=== PATIENT | female | born 1970 | race Caucasian/White ===

== ENCOUNTER → 2016-10-26 | Outpatient (CLI) | payer BC ==
[~2016-10-26] MED LIST: PRENTAB26
--- NOTE | 2016-10-26 13:47 | MAMMOGRAPHY REPORT ---
BILATERAL DIGITAL DIAGNOSTIC MAMMOGRAM TOMOSYNTHESIS WITH CAD AND TARGETED LEFT ULTRASOUND: 10/26/2016 CLINICAL HISTORY: A follow-up MRI was recommended on the September 2014 exam for a left upper outer q uadrant breast mass, however, the patient could not get a follow-up as the insurance company would n ot pay for it. TECHNIQUE: Breast tomosynthesis in addition to standard 2D mammography was performed. Current study was also evaluated with a Computer Aided Detection (CAD) system. Bilateral CC and MLO 2-D and juan synthesis images were obtained. COMPARISON: Comparison is made to exams dated: 10/09/2014 mammogram, 10/09/2014 ultrasound - [facility], 09/28/2014 mammogram, 09/28/2014 breast MRI - [facility], and 11/17 mammogram - [facility]. BREAST COMPOSITION: There are scattered areas of fibroglandular density in both breasts. FINDINGS: Again noted is an oval 9 mm mass seen within the left upper outer quadrant, which appears less prominent compared to prior exams including the 2013 and 2009 exam. On the tomosynthesis imag es other small round benign-appearing masses are seen in the adjacent tissues which likely represent cysts. The remainder of both breasts are stable compared to prior exams, without suspicious masses , calcifications, or areas of architectural distortion noted. A biopsy marker clip is again noted i n the right upper outer quadrant. Targeted ultrasound was performed of the left 2 to 3:00 breast in the region of the previously seen mass. In the left breast at 2:00 periareolar region, again noted is a subtle oval circumscribed par allel 9 x 3 x 5 mm mass, which likely corresponds with the mammographic mass. The mass is ill-defin ed on ultrasound but appears less prominent on mammograms and ultrasound compared to the 2014 exam, and is therefore considered benign and likely represents a cyst lesser. Other benign cystic changes are noted in the left 2:00 breast. IMPRESSION: ACR BI-RADS CATEGORY 2: BENIGN, TARGETED ULTRASOUND ACR BI-RADS CATEGORY 2: BENIGN The left upper outer quadrant breast mass is decreased in size compared to prior exams, and is there fore benign and likely represents a cyst cluster. There is no mammographic evidence of malignancy in either breast. A 1 year screening mammogram is recommended. The patient has been verbally notifie d of the results. Approximately 10% of breast cancers are not detected with mammography. A negative mammographic repor t should not delay biopsy if a clinically suggestive mass is present. Alejandra Rucker M.D. ah/:10/26/2016 11:51:34 Numerical Control Tool Programmer: Sadaf Blue, [facility] letter sent: Normal 1/2 BI-RADS Code: ACR BI-RADS Category 2: Benign Ultrasound BI-RADS: ACR BI-RADS Category 2: Benign
== END | disposition home or self-care (01) ==
LOC: C.MAMM 09:16
PROVIDERS: ATTEND Family Medicine
DX: R92.8 Other abnormal and inconclusive findings on diagnostic imaging of breast (principal); N63 Unspecified lump in breast

== ENCOUNTER 2023-07-18 14:57 | Inpatient (IN) ==
[2023-07-18 16:36] LABS: Basophils # (auto) 0.02 K/uL (0.00-0.20); Basophils % (auto) 0.2 %; Eosinophils # (auto) 0.06 K/uL (0.00-0.50); Eosinophils % (auto) 0.5 %; Hematocrit (blood only) 44.8 % (37.0-47.0); Hemoglobin 14.5 g/dl (12.0-16.0); Immature Granulocytes # (auto) 0.02 K/uL (0.01-0.20); Immature Granulocytes % (auto) 0.2 %; Lymphocytes # (auto) 0.86 K/uL (1.20-3.40); Lymphocytes % (auto) 7.4 %; Mean Corpuscular Hgb Conc 32.4 g/dL (32.0-36.0); Mean Corpuscular Volume 92.6 fL (80.0-100.0); Mean Platelet Volume 10.2 fL (9.4-12.4); Monocytes # (auto) 0.62 K/uL (0.11-0.59); Monocytes % (auto) 5.3 %; Neutrophils # (auto) 10.02 K/uL (1.40-6.50); Neutrophils % (auto) 86.4 %; Platelet Count 239 K/uL (130-400); RDW Coefficient of Variation 12.8 % (11.5-14.5); RDW Standard Deviation 43.6 fL (36.4-46.3); Red Blood Count 4.84 M/uL (4.20-5.40)
[2023-07-18 16:57] LABS: Albumin Globulin Ratio 1.4 (0.9-2); Albumin Level 4.6 gm/dl (3.4-5.0); BUN Creatinine Ratio 18.3 (10-20); Bilirubin,Total 1.1 mg/dl (0.2-1.0); Calcium 9.4 mg/dl (8.6-10.3); Creatinine Clr Calc Pharmacy 109.9 ml/min; Est GFR (African American) 111.9 ml/min; Est GFR (Non-African American) 96.6 ml/min; Globulin 3.2 gm/dl (2.5-4.0); Total Protein 7.8 gm/dl (6.0-8.3)
--- NOTE | 2023-07-18 17:10 | Ultrasound Report ---
US abdomen limited CLINICAL HISTORY: RUQ pain, "gallbladder attack" TECHNIQUE: Multiple real-time sonographic images of the right upper quadrant were obtained. Comparison: Comparison is made to right upper quadrant ultrasound 01/26/2023 FINDINGS: The liver is diffusely echogenic in appearance with poor ultrasound penetration, with normal contour, which is consistent with fatty infiltration. No focal mass lesions are seen. No intrahepatic duct al dilatation is seen. Gallbladder demonstrates a thickened wall without pericholecystic fluid. Echo genic calcifications are seen along the anterior gallbladder wall. A sonographic Augustin's sign was el icited by the data consultant. The common duct measures 0.4 cm in diameter at the level of the hepatic artery. The visualized portions of the pancreas appear normal. The right kidney shows normal echogenicity, cortical thickness and renal contour. The right kidney sh ows no evidence of hydronephrosis or mass. No ascites or free fluid is seen in Thayer's pouch. IMPRESSION: 1. Thickened gallbladder wall with positive sonographic Augustin's sign, compatible with acute cholecy stitis. 2. Likely adenomyomatosis in the anterior gallbladder wall. ACT 112: Negative or not required by law. Electronically signed by: Raj Chamberlain M.D. 07/18/2023 5:08 PM
[2023-07-18 17:23] LABS: Appearance Urine Clear (Clear); Bacteria Urine Automated Negative (Negative); Blood Urine Negative (Negative); Color Urine Dark Yellow; Epithelial Cell Urine Auto 20-30 /lpf (0-5); Glucose Urine UA Negative (Negative); Ketones Urine Negative (Negative); Leukocyte Esterase Urine Trace (Negative); Nitrite Urine Negative (Negative); Protein Urine Trace (Negative); Specific Gravity Urine 1.028 (1.000-1.030); Urobilinogen Urine Negative (Negative)
[2023-07-18 17:27] LABS: Bilirubin Urine 1+ (Negative)
[2023-07-18 17:37] LABS: RBC Urine Automated 0-4 /hpf (0-4)
[2023-07-18 17:38] LABS: Mucus Urine Present (None Prsent)
[2023-07-18] MEDS ORDERED: ONDANSETRON INJ 2 MG/ML 2 ML VIAL IV STA (18:33)
[2023-07-18] MEDS ORDERED: SODIUM CHLORIDE 0.9% 1,000 ML IV ONE (18:33)
[2023-07-18] MEDS ORDERED: PIPERACILLIN/TAZOBACTAM 4.5 GM/100 ML BAG IV ONE (18:35)
--- NOTE | 2023-07-18 18:38 | Emergency Department Note ---
Impression & Plan Cholecystitis, Abdominal pain, Transaminitis ED Provider Note NAME: GILMER COLLIER AGE: 53 SEX: F : 1970 ARRIVES VIA: Walk-In INFORMANT: Patient ED PROVIDER(S): Atilio New DO CHIEF COMPLAINT: abdominal pain HPI: Patient is a 53-year-old female who presents ER for epigastric abdominal pain which has been coming and going since January. She notes this is mainly at t he night time that this occurs. Associate with some nausea and intermittent vomiting. It occurred at the end of last week and again Sunday and Sunday. Since Sunday has been constant she notes it has improved in severity. It is associated with nausea and vomiting. Has not really been eating or drinking much. Denies any headache or change in vision. Admits to feeling very weak and rundown. No dysuria, urgency, or frequency. No other exacerbating or remitting factors. ADDITIONAL HISTORY OBTAINED: Per HPI Chronic Medical/Social Conditions Affecting Care: Per HPI PAST MEDICAL HISTORY:See Below PAST SURGICAL HISTORY:See Below FAMILY HISTORY:See Below SOCIAL HISTORY:See Below HOME MEDICATIONS:See Below ALLERGIES:See Below VITALS:See Below PHYSICAL EXAMINATION: GENERAL: Sitting up in bed, alert, well appearing, well nourished, no distress, non-toxic EYE EXAM: normal conjunctiva. OROPHARYNX: mucous membranes are moist NECK: supple, no nuchal rigidity, no adenopathy, non-tender LUNGS: Clear to auscultation. Normal chest wall mechanics HEART: no murmurs, S1 normal and S2 normal ABDOMEN: abdomen soft, TTP in RUQ, normo-active bowel sounds, no masses, no re bound or guarding. UPPER EXTREMITIES: upper extremities are grossly normal. LOWER EXTREMITIES: No pitting edema. NEURO EXAM: Normal sensorium, cranial nerves II-XII grossly intact, normal speech, no gross weakness of arms, no gross weakness of legs. No drift. Finger to nose intact. Gross sensation intact. MEDICAL DECISION MAKING: Patient is a 53-year-old female who presents ER for above-stated complaint. IV was established blood work was obtained. Labs show mild leukocytosis 11,000. No significant anemia. BMP was unremarkable. LFTs with mild transaminitis. T. bili just faintly up at 1.1. Lipase normal. UA was contaminated. Patient was given IV Zosyn, fluids and Zofran. She declined pain medications initially. Ultrasound confirmed acute cholecystitis. Patient was updated bedside. Discussed the case with general surgery Dr. Murray who admitted the patient for further work-up in the OR in the morning following an MRCP. External Records Reviewed: Reviewed PCP notes for follow-up for right upper quadrant pain Consults/Care Managements Discussions: Per HPI Triage Nursing notes reviewed. Limited review of prior medical records performed Vital Signs: reviewed and remarkable for no significant abnormalities Differential diagnosis: Differential diagnoses includes but is not limited to gastritis, peptic ulcer disease, GERD, gallbladder disease, pancreatitis, small bowel obstruction, appendicitis, diverticulitis, hernia, urinary tract infection, torsion, perforation, trauma, infectious. ER treatment provided: See below Diagnostics interpreted by me include EKG and cardiac monitoring as listed below: -Cardiac Monitoring: An order was placed for continuous cardiac monitoring. The monitor shows a rate of 80 with sinus rhythm. -ECG: none -Laboratory studies:Interpreted by me as stated above in MDM and shown below. Imaging studies: Xrays: As interpreted by me:none CTs show: none Ultrasound the gallbladder per my read shows gallstones Ultrasound the gallbladder per radiology shows acute cholecystitis Procedures:none Critical Care: [None] Past Med/Surg History Medical History Acid reflux Basal cell carcinoma off shoulder, removed in office Chronic back pain Hyperthyroidism on Methimazole Melanoma right thigh Obesity Surgical History H/O local excision of skin lesion H/O right breast biopsy (2012) History of dilation and curettage History of melanoma excision Nausea and vomiting after administration of anesthetic agent S/P wisdom tooth extraction Family History Father Congestive heart failure (CHF) Myocardial infarction Family history of diabetes mellitus Brother Congestive heart failure (CHF) Family history of reaction to anesthesia Mother Graves disease Pancreatic cancer Trigeminal neuralgia Family hx colonic polyps Grandmother (Maternal) Breast cancer Brother No problems noted. Brother No problems noted. Brother No problems noted. Sister No problems noted. Daughter No problems noted. Daughter No problems noted. Daughter Deep vein thrombosis Brother No problems noted. Other Hyperlipidemia Hypertension Thyroid disorder Denies family history of Ovarian cancer Prostate cancer Colorectal cancer Social History Smoking Status: Never smoker Second Hand Exposure: No; Do You Dip or Chew Tobacco: No; Hx Alcohol Use: Yes Alcohol type: beer Alcohol Intake Frequency: 2-3 x/Week Hx Substance Use: No Preferred Language: Amharic Communication Ability: Effective Visual Impairment: No Limitations Hearing Ability: Normal Data Virtualization Consultant Required: No Beliefs That Will Affect Care: None marital status: Current Living Situation: Spouse and Family Current Living Situation Comment: Lives with and 2 kids current occupational status: employed 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 Safe at Home: Yes Childhood Exposure to Second-Hand Smoke: No Diet: regular Dental Care, Regularly: Yes Physical Activity Frequency: Does not Exercise Seatbelt Use: always Sunscreen Use: Yes Assistive Devices: Contacts and Glasses Allergies Allergies Allergy/AdvReac Type Severity Reaction Status Date / Time No Known Allergies Allergy Unknown Verified 07/17/23 18:08 Home Meds Home Medications Medication Instructions Recorded Confirmed cholecalciferol (vitamin D3) 25 4,000 unit PO DAILY 12/08/22 07/18/23 mcg (1,000 unit) capsule Previous Rx's Medication Instructions Recorded methimazole 5 mg tablet 7.5 mg PO QAM #45 tabs 03/02/23 ondansetron 4 mg disintegrating 4 mg PO Q8H PRN nausea and 07/17/23 tablet vomiting #30 tabs Results & Data (ED) Vital Signs Vital Signs - 24 hr 07/18/23 15:05 07/18/23 19:04 Temperature 36.2 C L Temperature Source Temporal Artery Scan Pulse Rate 79 79 Respiratory Rate 18 Respiratory Depth Normal Blood Pressure 129/68 Blood Pressure Mean 88 Pulse Oximetry 97 Oxygen Delivery Method Room Air Sepsis Recent Fever Within 48 Hours No Sepsis New/Unexplained Change in Mental Status N/A Sepsis Action Taken by Nursing No Action Required Laboratory Data 07/18/23 16:10 07/18/23 16:10 Lab Results 07/18/23 07/18/23 07/18/23 Range/Units 16:10 16:10 16:46 WBC 11.60 H (4.8-10.8) K/ul RBC 4.84 (4.20-5.40) M/uL Hgb 14.5 (12.0-16.0) g/dl Hct 44.8 (37.0-47.0) % MCV 92.6 (80.0-100.0) fL MCH 30.0 (25.0-34.0) pg MCHC 32.4 (32.0-36.0) g/dL RDW Std Deviation 43.6 (36.4-46.3) fL RDW Coeff of Vonda 12.8 (11.5-14.5) % Plt Count 239 (130-400) K/uL MPV 10.2 (9.4-12.4) fL Immature Gran % (Auto) 0.2 % Neut % (Auto) 86.4 % Lymph % (Auto) 7.4 % Jones % (Auto) 5.3 % Eos % (Auto) 0.5 % Baso % (Auto) 0.2 % Neut # (Auto) 10.02 H (1.40-6.50) K/uL Lymph # (Auto) 0.86 L (1.20-3.40) K/uL Jones # (Auto) 0.62 H (0.11-0.59) K/uL Eos # (Auto) 0.06 (0.00-0.50) K/uL Baso # (Auto) 0.02 (0.00-0.20) K/uL Immature Gran # (Auto) 0.02 (0.01-0.20) K/uL Sodium 140 (136-145) mmol/L Potassium 4.0 (3.5-5.1) mmol/L Chloride 104 (98-107) mmol/L Carbon Dioxide 29 (21-32) mmol/L Anion Gap 7 (3-11) BUN 13 (6-23) mg/dl Creatinine 0.71 (0.6-1.2) mg/dl Est Cr Clr Drug Dosing 109.9 ml/min Est GFR ( Amer) 111.9 ml/min Est GFR (Non-Af Amer) 96.6 ml/min BUN/Creatinine Ratio 18.3 (10-20) Glucose 156 H (70-99(Fasting)) mg/dl Calcium 9.4 (8.6-10.3) mg/dl Total Bilirubin 1.1 H (0.2-1.0) mg/dl AST 147 H (13-39) U/L ALT 78 H (7-52) U/L Alkaline Phosphatase 181 H (34-104) U/L Total Protein 7.8 (6.0-8.3) gm/dl Albumin 4.6 (3.4-5.0) gm/dl Globulin 3.2 (2.5-4.0) gm/dl Albumin/Globulin Ratio 1.4 (0.9-2) Lipase 41 (11-82) U/L Urine Color Dark Yellow Urine Appearance Clear (Clear) Urine pH 5.0 (4.5-7.5) Ur Specific [place] 1.028 (1.000-1.030) Urine Protein Trace H (Negative) Urine Glucose (UA) Negative (Negative) Urine Ketones Negative (Negative) Urine Blood Negative (Negative) Urine Nitrite Negative (Negative) Urine Bilirubin 1+ H (Negative) Urine Urobilinogen Negative (Negative) Ur Leukocyte Esterase Trace H (Negative) Urine WBC (Auto) 5-10 H (0-5) /hpf Urine RBC (Auto) 0-4 (0-4) /hpf U Hyaline Cast (Auto) 1-5 (0-5) /lpf U Epithel Cells (Auto) 20-30 H (0-5) /lpf Urine Bacteria (Auto) Negative (Negative) Urine Mucus Present A (None Prsent) Administered Medications Acetaminophen (Ofirmev) 1,000 mg in 100 mls @ 400 mls/hr IV Q8H PRN PRN Reason: Moderate Pain (Scale 4, 5, 6) Stop: 07/21/23 19:14 Last Infusion: 07/18/23 20:03 Dose: 0 mls/hr Documented By: Admin: 07/18/23 19:37 Dose: 400 mls/hr Documented By: GRANT Sodium Chloride (Nss) 1,000 mls @ 100 mls/hr IV .Q10H MATTIE Stop: 08/17/23 19:14 Last Admin: 07/18/23 19:34 Dose: 100 mls/hr Documented By: GRANT Discontinued Medications Sodium Chloride (Nss) 1,000 mls @ 999 mls/hr IV .Q1H1M ONE Stop: 07/18/23 19:33 Last Infusion: 07/18/23 19:33 Dose: 0 mls/hr Documented By: Admin: 07/18/23 18:52 Dose: 999 mls/hr Documented By: ZOË Piperacillin Sod/Tazobactam Sod (Zosyn) 4.5 gm in 100 mls @ 200 mls/hr IV NOW ONE Stop: 07/18/23 19:04 Last Infusion: 07/18/23 20:04 Dose: 0 mls/hr Documented By: Admin: 07/18/23 18:52 Dose: 200 mls/hr Documented By: ZOË Ondansetron HCl (Ondansetron Inj 2 Mg/Ml 2 Ml Vial) 4 mg IV NOW STA Stop: 07/18/23 18:34 Last Admin: 07/18/23 18:53 Dose: 4 mg Documented By: ZOË Imaging Data Radiologist's Impression: Abdomen Ultrasound 07/18/23 16:10 US abdomen limited CLINICAL HISTORY: RUQ pain, "gallbladder attack" TECHNIQUE: Multiple real-time sonographic images of the right upper quadrant were obtained. Comparison: Comparison is made to right upper quadrant ultrasound 01/26/2023 FINDINGS: The liver is diffusely echogenic in appearance with poor ultrasound penetration, with normal contour, which is consistent with fatty infiltration. No focal mass lesions are seen. No intrahepatic ductal dilatation is seen. Gallbladder demonstrates a thickened wall without pericholecystic fluid. Echogenic calcifications are seen along the anterior gallbladder wall. A sonographic Augustin's sign was elicited by the managed services consultant. The common duct measures 0.4 cm in diameter at the level of the hepatic artery. The visualized portions of the pancreas appear normal. The right kidney shows normal echogenicity, cortical thickness and renal contour. The right kidney shows no evidence of hydronephrosis or mass. No ascites or free fluid is seen in Thayer's pouch. IMPRESSION: 1. Thickened gallbladder wall with positive sonographic Augustin's sign, compatible with acute cholecystitis. 2. Likely adenomyomatosis in the anterior gallbladder wall. ACT 112: Negative or not required by law. Electronically signed by: Raj Chamberlain M.D. 07/18/2023 5:08 PM Discharge Plan Visit Data Chief Complaint: Abdominal Pain Stated Complaint: ABDOMINAL PAIN, GALLBLADDER ATTACK ED Provider: Atilio New Discharge Problem: Cholecystitis, Abdominal pain, Transaminitis Patient Disposition: Admitted As Inpatient Discharge Instructions Interventions: ED Discharge Assessment Last Done: 07/18/23 20:39
[2023-07-18] MEDS ORDERED: MoRPHine SULFATE 4 MG/ML 1 ML CARP\\VIAL IV PRN (19:15)
--- NOTE | 2023-07-18 19:32 | History & Physical Report ---
Date of Service July 18, 2023 Assessment & Plan (1) Cholecystitis: Plan: Due to the patient's clinical presentation and findings on imaging and laboratory she will be admitted to the hospital proceeding as follows: Analgesics will be provided Antiemetics to be provided Antibiotics have been initiated in the form of Zosyn. These will continue We will hydrate the patient with IV fluids I think for the present time will be acceptable for the patient to have sips of clear liquids. She will be made n.p.o. after midnight tonight. The patient is tentatively scheduled for cholecystectomy with Dr. Lara on 07/19/2023. We will repeat laboratories in the morning as the patient is noted to have some elevation of her LFTs. We will also check an MRCP due to her elevation of her LFTs to see if there is any evidence of choledocholithiasis. Additional recommendations to be forthcoming based on her clinical course as unfolds and operative findings as well as her postoperative recovery We will use SCDs for DVT prevention, no chemical means due to planned surgery She will be a level 1 full code History of Present Illness Chief Complaint: Abdominal pain Primary Care Provider: Amirah Vaca MD This is a 53-year-old female who presented the emergency department secondary to abdominal pain. She does that the pain first began in January. Patient said that she would have some right upper quadrant abdominal pain unrelated to meals. At that time the patient did undergo a gallbladder ultrasound that showed there was some echogenic foci in the gallbladder which were felt to represent gallstones. There is no pericholecystic fluid or gallbladder wall thickening at that time. The patient said that she made some lifestyle changes including diet changes and noted some improvement of her symptoms. Patient notes over the past several weeks though she has been having recurrent episodes of right upper quadrant pain. She notes that the pain is unrelated to meals but would often wake her up from sleep. She says that she has had associated nausea and vomiting. She denies any fevers, shakes, or chills. She has never had any abdominal surgeries in the past. She does not note any mitigating factors to her abdominal pain Since arrival to the hospital patient has had labs and imaging which) reviewed. Chest x-ray did not show any evidence of pneumothorax. The patient did not also appear to have any evidence of infiltrate. An abdominal ultrasound showed the patient had thickened gallbladder wall with pericholecystic fluid. There is no biliary ductal dilatation. There are some calcifications noted in the anterior gallbladder which could potentially have represented gallstones. Labs include a CBC her white blood cell count was 11.6. Hemoglobin, hematocrit, and platelet count were all within normal range. Chemistry profile showed sodium, potassium, BUN, creatinine within normal range. Patient did have some elevation of LFTs including a total bilirubin of 1.1, AST 147, ALT 78, and alkaline phosphatase of 181. Her lipase was nonelevated. Urinalysis did show trace leukocyte Estrace and 5-10 white blood cells per high-power field. There is no bacteria or nitrites on this study. An EKG was performed that showed normal sinus rhythm. There did not appear to be any changes indicative of acute ischemia. At the time of my interview the patient was resting comfortably in bed and she was in no distress. Allergies Allergy/AdvReac Type Severity Reaction Status Date / Time No Known Allergies Allergy Unknown Verified 07/17/23 18:08 Home Medications Medication Instructions Recorded Confirmed Type cholecalciferol (vitamin D3) 25 4,000 unit PO DAILY 12/08/22 07/18/23 History mcg (1,000 unit) capsule methimazole 5 mg tablet 7.5 mg PO QAM #45 tabs 03/02/23 07/18/23 Rx ondansetron 4 mg disintegrating 4 mg PO Q8H PRN nausea and 07/17/23 07/18/23 Rx tablet vomiting #30 tabs Past Med/Surg History Medical History Acid reflux Basal cell carcinoma off shoulder, removed in office Chronic back pain Hyperthyroidism on Methimazole Melanoma right thigh Obesity Surgical History H/O local excision of skin lesion H/O right breast biopsy (2012) History of dilation and curettage History of melanoma excision Nausea and vomiting after administration of anesthetic agent S/P wisdom tooth extraction Family History Father Congestive heart failure (CHF) Myocardial infarction Family history of diabetes mellitus Brother Congestive heart failure (CHF) Family history of reaction to anesthesia Mother Graves disease Pancreatic cancer Trigeminal neuralgia Family hx colonic polyps Grandmother (Maternal) Breast cancer Brother No problems noted. Brother No problems noted. Brother No problems noted. Sister No problems noted. Daughter No problems noted. Daughter No problems noted. Daughter Deep vein thrombosis Brother No problems noted. Other Hyperlipidemia Hypertension Thyroid disorder Denies family history of Ovarian cancer Prostate cancer Colorectal cancer Social History Smoking Status: Never smoker Second Hand Exposure: No; Do You Dip or Chew Tobacco: No; Hx Alcohol Use: Yes Alcohol type: beer Alcohol Intake Frequency: 2-3 x/Week Hx Substance Use: No Preferred Language: Irish Communication Ability: Effective Visual Impairment: No Limitations Hearing Ability: Normal Carbon Paper Coating Supervisor Required: No Beliefs That Will Affect Care: None marital status: Current Living Situation: Spouse and Family Current Living Situation Comment: Lives with and 2 kids current occupational status: employed 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[employer], 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 Feels Safe at Home: Yes Childhood Exposure to Second-Hand Smoke: No Diet: regular Dental Care, Regularly: Yes Physical Activity Frequency: Does not Exercise Seatbelt Use: always Sunscreen Use: Yes Assistive Devices: Contacts and Glasses Review of Systems Constitutional: no fever and no chills Ear, Nose, Mouth, Throat: no ear pain Respiratory: no cough and no dyspnea Cardiovascular: no chest pain Gastrointestinal: as per Subjective / HPI Genitourinary: no dysuria Musculoskeletal: no back pain Integumentary: no rash Neurologic: no localized weakness Physical Exam Constitutional: WD/WN, vitals as above Eyes: + anicteric sclerae ENMT: Ears: no hearing impairment and no external ear abnormality Sublingual jaundice is absent Neck: trachea midline Respiratory: normal respiratory effort; no respiratory distress and no labored breathing Cardiovascular: Rate/Rhythm: regular rate and regular rhythm Vessels: dorsalis pedis pulses present and radial pulses present Gastrointestinal (Abdomen): Abdomen is rotund but soft. It is nonrigid. Bowel sounds are present. There is no rebound tenderness or guarding. The patient did have pain with palpation in the right upper quadrant Musculoskeletal: No calf tenderness Skin: no jaundice Neurologic: moves all extremities Psychiatric: A+Ox3, euthymic affect Results & Data Results & Data Vital Signs (Past 12 Hours) Vital Signs Temp Pulse Resp BP Pulse Ox O2 Del Method 07/18/23 19:04 79 07/18/23 15:05 36.2 C L 79 18 129/68 97 Room Air Code Status & VTE Plan VTE Prophylaxis Plan VTE Prophylaxis will be ordered: Yes PG Care Time/CCT Total # of Minutes Spent Total Time Spent with Patient: Total time spent is greater than 50% in coordination of care (as documented) at patient's floor/unit and/or counseling patient: Coding Level of Care Code 21727 INT INP/OBS CARE 75MIN Diagnoses Cholecystitis K81.9
[2023-07-18] MEDS: SODIUM CHLORIDE 0.9% 1,000 ML IV SCH (19:34)
[2023-07-18] MEDS: ACETAMINOPHEN 1,000 MG/100 ML VIAL IV PRN (19:37)
[2023-07-18] MEDS ORDERED: LORazepam 2 MG/1 ML VIAL IV STA (21:16)
[2023-07-18] MEDS ORDERED: LORazepam 2 MG/1 ML VIAL ONE (23:19)
[2023-07-19] MEDS: PIPERACILLIN/TAZOBACTAM 4.5 GM in DEXTROSE 5% MINI-B 100 ML IV SCH ×4 (00:04→23:43)
--- NOTE | 2023-07-19 01:21 | Magnetic Resonance Report ---
Exam(s): MRI MRCP EXAM: MR Abdomen Without Intravenous Contrast, MRCP Protocol CLINICAL HISTORY: Reason for exam: elevated LFTs; cholecystitis. TECHNIQUE: Multiplanar magnetic resonance images of the abdomen without intravenous contrast using MRCP protocol. COMPARISON: Ultrasound 07/18/2023. FINDINGS: Bile ducts: Unremarkable. No stones. No ductal dilation. Gallbladder: Multiple tiny gallstones within the gallbladder. There is pericholecystic fluid, combination of findings concerning for acute cholecystitis. There is thickening of the wall of the gallbladder. Liver: Unremarkable. Pancreas: Unremarkable. No ductal dilation. Spleen: Unremarkable. No splenomegaly. Adrenals: Unremarkable. No mass. Kidneys and ureters: Unremarkable. No hydronephrosis. Stomach and bowel: Unremarkable. No obstruction. IMPRESSION: 1. Multiple gallstones with thickening of the wall of the gallbladder and pericholecystic fluid raising the concern for acute cholecystitis pain 2. No biliary distention. Electronically signed by: Lily Zuleta MD 07/19/23 01:20 AM
[2023-07-19] MEDS: ACETAMINOPHEN 1,000 MG/100 ML VIAL IV PRN ×2 (03:57→19:32)
[2023-07-19] MEDS: SODIUM CHLORIDE 0.9% 1,000 ML IV SCH ×2 (05:47→19:56)
[2023-07-19 06:29] LABS: Basophils # (auto) 0.01 K/uL (0.00-0.20); Basophils % (auto) 0.2 %; Eosinophils # (auto) 0.06 K/uL (0.00-0.50); Eosinophils % (auto) 1.1 %; Hemoglobin 12.8 g/dl (12.0-16.0); Immature Granulocytes # (auto) 0.02 K/uL (0.01-0.20); Immature Granulocytes % (auto) 0.4 %; Lymphocytes # (auto) 0.98 K/uL (1.20-3.40); Lymphocytes % (auto) 17.5 %; Mean Corpuscular Hemoglobin 30.4 pg (25.0-34.0); Mean Corpuscular Hgb Conc 32.8 g/dL (32.0-36.0); Mean Corpuscular Volume 92.6 fL (80.0-100.0); Mean Platelet Volume 10.1 fL (9.4-12.4); Monocytes # (auto) 0.68 K/uL (0.11-0.59); Monocytes % (auto) 12.2 %; Neutrophils # (auto) 3.84 K/uL (1.40-6.50); Neutrophils % (auto) 68.6 %; Platelet Count 188 K/uL (130-400); RDW Coefficient of Variation 12.7 % (11.5-14.5); RDW Standard Deviation 43.2 fL (36.4-46.3); Red Blood Count 4.21 M/uL (4.20-5.40); White Blood Count 5.59 K/ul (4.8-10.8)
[2023-07-19 06:48] LABS: Albumin Globulin Ratio 1.5 (0.9-2); Albumin Level 3.8 gm/dl (3.4-5.0); BUN Creatinine Ratio 15.5 (10-20); Bilirubin,Total 1.3 mg/dl (0.2-1.0); Calcium 8.8 mg/dl (8.6-10.3); Creatinine Clr Calc Pharmacy 109.7 ml/min; Est GFR (African American) 111.9 ml/min; Est GFR (Non-African American) 96.6 ml/min; Globulin 2.6 gm/dl (2.5-4.0); Potassium 4.1 mmol/L (3.5-5.1); Total Protein 6.4 gm/dl (6.0-8.3)
--- NOTE | 2023-07-19 07:34 | XRay Report ---
XR chest 1V portable HISTORY: 53 years-old Female pre-op preoperative exam. No acute chest complaints COMPARISON: 10/20/2022 TECHNIQUE: AP view of the chest FINDINGS: Ill-defined left basilar opacities are likely secondary to summation density. Cardiac silhouette is u pper limits of normal in size. There is no pneumothorax, pleural effusion or pulmonary edema. The bon es of the chest appear grossly intact. IMPRESSION: No acute process. ACT 112: Negative or not required by law. The above report was generated using voice recognition software. It may contain grammatical, syntax o r spelling errors. Electronically signed by: Trae Ye M.D. 07/19/2023 7:32 AM
[2023-07-19] MEDS: methIMAzole 5 MG TABLET PO SCH (08:36)
--- NOTE | 2023-07-19 11:50 | History & Physical Bridge Note ---
Date of Service July 19, 2023 History & Physical Bridge Note I have examined the patient, reviewed the History & Physical and in the interval since the performance of the History & Physical I have noted the following changes of clinical significance: Patient seen. She is feeling better than she did last night. Her MRCP was negative for choledocholithiasis. We discussed her options. I am recommending laparoscopic cholecystectomy for acute cholecystitis. We discussed bleeding, infection, injury to a bile duct or bile leaks, injury to other organs, DVT, PE, NM, CVA etc. Following our discussion I answered all of her questions. She agrees with the plan and we will proceed this afternoon with laparoscopic cholecystectomy.
[2023-07-19] MEDS ORDERED: fentaNYL citrate PF 100 MCG/2 ML VIAL ONE ×3 (13:25→17:28)
[2023-07-19] MEDS ORDERED: DEXAMETHASONE SOD INJ 4 MG/ML VIAL ONE ×2 (13:25→15:50)
[2023-07-19] MEDS ORDERED: LIDOCAINE 2% 2 ML VIAL/AMP(20MG/ML) INFIL ONE ×2 (13:25→15:50)
[2023-07-19] MEDS ORDERED: MIDAZOLAM HCL 1 MG/ML 2ML VIAL ONE ×2 (13:25→15:49)
[2023-07-19] MEDS ORDERED: ONDANSETRON INJ 2 MG/ML 2 ML VIAL ONE ×2 (13:25→15:50)
[2023-07-19] MEDS ORDERED: ROCURONIUM BROMIDE 10 MG/ML 5 ML VIAL IV ONE (13:25)
[2023-07-19] MEDS ORDERED: PROPOFOL IV EMULSION 10 MG/ML 20 ML VIAL IV ONE ×2 (13:25→15:50)
[2023-07-19] MEDS ORDERED: BUPIVACAINE/EPINEPHRINE 0.5% MPF 1:200,000 10 ML VIAL ONE (14:54)
[2023-07-19] MEDS ORDERED: CHECK SCOPOLAMINE PATCH PLACEMENT SCH (16:00)
[2023-07-19] MEDS ORDERED: PROMETHAZINE HCL 6.25 MG in SODIUM CHLORIDE 0.9% 50 ML IV PRN (16:10)
[2023-07-19] MEDS ORDERED: ePHEDrine sulfate 50 MG/ML AMP IV PRN (16:10)
[2023-07-19] MEDS ORDERED: ATROPINE SULFATE 0.1 MG/ML 10ML SYR IV PRN (16:10)
[2023-07-19] MEDS ORDERED: ONDANSETRON INJ 2 MG/ML 2 ML VIAL IV PRN (16:10)
--- NOTE | 2023-07-19 16:10 | Anesthesiology Consultation ---
Date of Service July 19, 2023 Assessment & Plan Chart Review Chart Review: Acceptable Risk for Surgery and Patient NOT seen in Pre Admission Testing Consults Requested none ASA ASA2 Proposed Anesthesia Anesthesia Type: General Risk / Benefits Reviewed With: PT / POA / Parent / Guardian, Accepts Plan and Informed Consent Obtained History Surgery Operation Date: 07/19/23 08:10 Proposed Procedures p Laparoscopic Cholecystectomy - Cem Lara, DO Height/Weight Height: 5 ft 7 in Weight: 99.4 kg Allergies Allergy/AdvReac Type Severity Reaction Status Date / Time No Known Allergies Allergy Unknown Verified 07/17/23 18:08 Medications Home Medications Medication Instructions Recorded Confirmed Last Taken cholecalciferol (vitamin D3) 25 4,000 unit PO DAILY 12/08/22 07/18/23 Unknown mcg (1,000 unit) capsule methimazole 5 mg tablet 7.5 mg PO QAM #45 tabs 03/02/23 07/18/23 Unknown ondansetron 4 mg disintegrating 4 mg PO Q8H PRN nausea and 07/17/23 07/18/23 Unknown tablet vomiting #30 tabs Active Medications Generic Name Dose Route Start Last Admin Trade Name Freq PRN Reason Stop Dose Admin Acetaminophen 1,000 mg in 100 mls @ 400 mls/hr 07/18/23 19:15 07/19/23 04:32 Ofirmev IV 07/21/23 19:14 Infused Q8H PRN Infusion Moderate Pain (Scale 4, 5, 6) Sodium Chloride 1,000 mls @ 100 mls/hr 07/18/23 19:15 07/19/23 15:28 Nss IV 08/17/23 19:14 0 mls/hr .Q10H MATTIE Infusion Piperacillin Sod/Tazobactam 100 mls @ 25 mls/hr 07/19/23 00:00 07/19/23 12:37 Sod 4.5 gm/ Dextrose IV 07/29/23 00:00 Infused Q8H MATTIE Infusion Protocol Methimazole 7.5 mg 07/19/23 09:00 07/19/23 08:36 Methimazole 5 Mg Tablet PO 08/18/23 08:59 7.5 mg QAM MATTIE Administration NPO Date Last Intake of Fluids: 07/18/23 Date Last Intake of Solids: 07/18/23 Past Medical History Medical History Acid reflux Basal cell carcinoma off shoulder, removed in office Chronic back pain Hyperthyroidism on Methimazole Melanoma right thigh Obesity Exercise / Class Metabolic Activity II 4-5 Yardwork/Stairs/Walk up hill Past Family History Family History Father Congestive heart failure (CHF) Myocardial infarction Family history of diabetes mellitus Brother Congestive heart failure (CHF) Family history of reaction to anesthesia Mother Graves disease Pancreatic cancer Trigeminal neuralgia Family hx colonic polyps Grandmother (Maternal) Breast cancer Brother No problems noted. Brother No problems noted. Brother No problems noted. Sister No problems noted. Daughter No problems noted. Daughter No problems noted. Daughter Deep vein thrombosis Brother No problems noted. Other Hyperlipidemia Hypertension Thyroid disorder Denies family history of Ovarian cancer Prostate cancer Colorectal cancer Past Surgical History Surgical History H/O local excision of skin lesion H/O right breast biopsy (2012) History of dilation and curettage History of melanoma excision Nausea and vomiting after administration of anesthetic agent S/P wisdom tooth extraction Past Anesthesia History No Hx of Anesthesia Complications and No Family Hx of Anesthesia Complications History of PONV No Hx of PONV and No Hx of Motion Sickness Social History Smoking Status: Never smoker Do You Dip or Chew Tobacco: No Hx Alcohol Use: Yes Alcohol type: beer alcohol intake frequency: a few times a week Hx Substance Use: No substance use type: does not use Physical Exam Vital Signs Last Vital Signs Temp 37.1 C 07/19/23 15:32 Pulse 74 07/19/23 15:32 Resp 16 07/19/23 15:32 BP 123/78 07/19/23 15:32 Pulse Ox 97 07/19/23 15:32 O2 Del Method Room Air 07/19/23 15:32 ENMT Mouth: no dentition abnormality Thyromental Distance: > or= 3.5 Finger Breadths Mallampati Class: II Neck normal visual inspection Respiratory normal respiratory effort Auscultation: lungs clear to auscultation bilaterally Cardiovascular Rate/Rhythm: regular rate and regular rhythm Psychiatric Orientation: alert Testing Laboratory Results 07/19/23 06:16 07/19/23 06:16 Urine Color Dark Yellow 07/18/23 16:46 Urine Appearance Clear (Clear) 07/18/23 16:46 Urine pH 5.0 (4.5-7.5) 07/18/23 16:46 Ur Specific [place] 1.028 (1.000-1.030) 07/18/23 16:46 Urine Protein Trace (Negative) H 07/18/23 16:46 Urine Glucose (UA) Negative (Negative) 07/18/23 16:46 Urine Ketones Negative (Negative) 07/18/23 16:46 Urine Nitrite Negative (Negative) 07/18/23 16:46 Ur Leukocyte Esterase Trace (Negative) H 07/18/23 16:46 Urine WBC (Auto) 5-10 /hpf (0-5) H 07/18/23 16:46 Urine RBC (Auto) 0-4 /hpf (0-4) 07/18/23 16:46 U Hyaline Cast (Auto) 1-5 /lpf (0-5) 07/18/23 16:46 U Epithel Cells (Auto) 20-30 /lpf (0-5) H 07/18/23 16:46 Urine Bacteria (Auto) Negative (Negative) 07/18/23 16:46
[2023-07-19] MEDS ORDERED: SCOPOLAMINE 1 MG TDSY TD ONE ×2 (16:11)
[2023-07-19] MEDS ORDERED: SUGAMMADEX SODIUM 200 MG/2 ML VIAL IV ONE (17:35)
[2023-07-19] MEDS ORDERED: KETOROLAC 30 MG/ML VIAL ONE (17:35)
[2023-07-19] MEDS: fentaNYL citrate PF 100 MCG/2 ML VIAL IV PRN ×2 (18:09→18:16)
--- NOTE | 2023-07-19 18:22 | Anesthesiology Progress Note ---
Date of Service July 19, 2023 Anesthesia Post Procedure Vital Signs Vital Signs: Temp Pulse Pulse Pulse Resp BP Pulse Ox 07/19/23 18:10 78 18 137/99 100 07/19/23 18:03 36 C L 84 16 138/90 100 07/19/23 15:32 37.1 C 74 16 123/78 97 07/19/23 11:38 36.4 C L 63 14 103/68 97 07/19/23 08:15 36.6 C 14 104/68 96 07/19/23 00:57 07/18/23 21:00 07/18/23 21:00 36.8 C 80 20 127/81 96 07/18/23 21:06 36.8 C 80 20 127/81 96 07/18/23 20:15 74 16 111/84 97 07/18/23 20:00 76 21 96 07/18/23 19:04 79 O2 Del Method O2 Flow Rate 07/19/23 18:10 Nasal Cannula 2 07/19/23 18:03 Oxymask 6 07/19/23 15:32 Room Air 07/19/23 11:38 Room Air 07/19/23 08:15 Room Air 07/19/23 00:57 Room Air 07/18/23 21:00 Room Air 07/18/23 21:00 Room Air 07/18/23 21:06 Room Air 07/18/23 20:15 Room Air 07/18/23 20:00 Room Air 07/18/23 19:04 Pain Intensity Right Lower Abdomen: Pain Intensity: 7 Transfer of Care Handoff Completed per policy Notes Mental Status: alert / awake / arousable Patient Amnestic to Procedure: Yes Nausea / Vomiting: adequately controlled Pain: adequately controlled Airway Patency, RR, SpO2: stable & adequate BP & HR: stable & adequate Hydration State: stable & adequate Anesthetic Complications: no major complications apparent
--- NOTE | 2023-07-19 18:24 | Operative Report ---
PG Post Operative Report Pre & Post Diagnosis Operation Date: 07/19/23 08:10 Pre-Op Diagnosis: Cholecystitis. Post-Op Diagnosis: Cholecystitis; adhesions I identified the patient and participated in the time-out.: Yes Procedure Operation Date: 07/19/23 08:10 Actual Procedures p Laparoscopic Cholecystectomy; enterolysis - Cem Lara DO Surgeon Cem Lara DO Perioperative Manager lorenzo Newell Estimated Blood Loss 50 Findings Consistent with Post-Op Diagnosis Specimens gallbladder Description of Procedure After informed consent was obtained the patient was taken to the operating room and placed in supine position. After successful intubation the abdomen was sterilely prepped and draped in usual fashion. I began with a supraumbilical incision and carried this down through the soft tissue using cautery. Anterior fascia was opened using cautery and two #0 Vicryl stay sutures were placed. Peritoneum was entered using blunt finger penetration and a finger sweep was performed. A 12 mm Rubin trocar was placed and the abdomen was insufflated to 20 mmHg. The laparoscope was inserted and the abdomen was examined in 360 degrees. A subxiphoid 5 mm port which would later be converted to a 12 mm port was placed. There were adhesions in the right upper quadrant from the right colon to the anterior abdominal wall. These were taken down using sharp scissor lysis. Once the adhesions were down two right upper quadrant 5 mm ports were placed under direct vision. The patient was placed in a reverse Trendelenburg position and slightly airplaned to the left. The gallbladder itself was very acutely inflamed. I was unable to grasp it and therefore used a gallbladder needle to suction out about 20 cc of thick sludge-like bile. We were then able to grasp the gallbladder and elevate it superiorly and laterally. [place] dissectors were used to take down adhesions around the neck of the gallbladder. I was able to skeletonize the cystic duct. It was clipped twice proximally and once distally and transected using laparoscopic scissors. In similar fashion the cystic artery was identified skeletonized clipped and divided. The gallbladder was removed from the gallbladder fossa using cautery. Again it was very acutely inflamed making this portion of the procedure tedious. Eventually I was able to get the gallbladder off the liver and placed it into an Endo Catch bag. I had to extend the fascial and skin incision of the periumbilical incision in order to remove the gallbladder due to its very large gallstones and thickened wall. Once we removed it we reinserted the camera. I thoroughly irrigated the right upper quadrant and controlled any small bleeding points using cautery. At the end of the procedure there was adequate hemostasis and no evidence of any bile leaks. No other gross abnormalities were identified. The trocars were all removed and the abdomen desufflated. The fascia of the camera port was closed using 0 Vicryl in simple interrupted fashion. The wounds were all thoroughly irrigated. The larger incision was closed using 3-0 Vicryl for deep layers and 4 Monocryl for skin. The smaller incisions were closed with 4-0 Monocryl. Marcaine with epinephrine were injected around the incisions for postoperative analgesia and skin glue used as a dressing. The patient was awakened extubated and transferred recovery in stable condition. My physician trust administrative assistant was present through the entire case was instrumental in providing exposure during my dissection assisting with wound closure and dressing placement as well. I attest to the content of the Intraoperative Record and any orders documented therein. Any exceptions are noted below.
[2023-07-19] MEDS: HYDROmorphone INJ 2 MG/ML SYR/VIAL IV PRN ×2 (18:28→18:34)
[2023-07-19] MEDS ORDERED: MoRPHine SULFATE 4 MG/ML 1 ML CARP\\VIAL IV PRN (19:31)
[2023-07-19] MEDS ORDERED: MoRPHine SULFATE 2 MG/ML CARP IV PRN (19:31)
[2023-07-19] MEDS ORDERED: oxyCODONE HCL IR 5 MG TAB (IMMEDIATE RELEASE) PO PRN (19:31)
[2023-07-19] MEDS ORDERED: HYDROmorphone INJ 0.5 MG/0.5 ML SYR IV PRN (22:08)
[2023-07-19] MEDS: ONDANSETRON INJ 2 MG/ML 2 ML VIAL IV PRN (22:34)
[2023-07-19] MEDS: LACTATED RINGER'S 1,000 ML IV SCH (22:34)
[2023-07-19] MEDS: DOCUSATE SODIUM 100 MG CAP PO SCH (22:44)
[2023-07-20] MEDS ORDERED: HYDROmorphone INJ 0.5 MG/0.5 ML SYR IV STA (02:38)
[2023-07-20] MEDS: ACETAMINOPHEN 1,000 MG/100 ML VIAL IV PRN (03:37)
[2023-07-20 07:01] LABS: Hemoglobin 12.8 g/dl (12.0-16.0); Immature Granulocytes # (auto) 0.01 K/uL (0.01-0.20); Immature Granulocytes % (auto) 0.2 %; Lymphocytes # (auto) 0.64 K/uL (1.20-3.40); Lymphocytes % (auto) 9.9 %; Mean Corpuscular Hemoglobin 30.3 pg (25.0-34.0); Mean Corpuscular Hgb Conc 32.8 g/dL (32.0-36.0); Mean Corpuscular Volume 92.2 fL (80.0-100.0); Mean Platelet Volume 10.2 fL (9.4-12.4); Monocytes # (auto) 0.59 K/uL (0.11-0.59); Monocytes % (auto) 9.1 %; Neutrophils # (auto) 5.23 K/uL (1.40-6.50); Neutrophils % (auto) 80.8 %; Platelet Count 235 K/uL (130-400); RDW Coefficient of Variation 12.8 % (11.5-14.5); RDW Standard Deviation 43.6 fL (36.4-46.3); Red Blood Count 4.23 M/uL (4.20-5.40); White Blood Count 6.47 K/ul (4.8-10.8)
[2023-07-20 07:22] LABS: BUN Creatinine Ratio 14.9 (10-20); Bilirubin Direct 0.2 mg/dl (0-0.2); Bilirubin,Total 0.9 mg/dl (0.2-1.0); Creatinine Clr Calc Pharmacy 116.3 ml/min; Est GFR (African American) 115.5 ml/min; Est GFR (Non-African American) 99.7 ml/min; Potassium 4.2 mmol/L (3.5-5.1); Total Protein 6.9 gm/dl (6.0-8.3)
--- NOTE | 2023-07-20 07:54 | Surgery Progress Note ---
Date of Service July 20, 2023 Assessment & Plan (1) Abdominal pain: Plan: Postoperative day #1. She is doing okay but not ready for discharge yet. We will convert to oral medications and give her a diet today. If she does well and her labs look okay potential discharge tomorrow. Dr. Archer covering for the weekend. (2) Cholecystitis: Admission and Anticipated Discharge Date Admission Date: July 18, 2023 Subjective Patient seen. Doing better this morning than last night. She is still having significant upper abdominal pain. Currently no nausea Physical Exam Physical Exam: Alert. In mild postsurgical discomfort Abdomen is soft with expected postoperative tenderness Results & Data Vital Signs (Past 12 Hours) Vital Signs Temp Pulse Resp BP Pulse Ox O2 Del Method O2 Flow Rate 07/20/23 06:40 36.3 C L 62 18 114/73 97 Room Air 07/20/23 02:00 36.4 C L 62 18 104/65 95 Room Air 07/19/23 22:12 36.5 C 75 18 115/76 92 Room Air 07/19/23 21:14 36.9 C 66 18 111/67 92 Room Air 07/19/23 20:10 36.8 C 75 16 109/64 96 Nasal Cannula 2 PG Care Time/CCT Total # of Minutes Spent Total Time Spent with Patient: Total time spent is greater than 50% in coordination of care (as documented) at patient's floor/unit and/or counseling patient: Coding Level of Care Code 65559 Post Operative Follow-Up Diagnoses Abdominal pain R10.9 Cholecystitis K81.9
[2023-07-20] MEDS: DOCUSATE SODIUM 100 MG CAP PO SCH ×2 (08:31→20:43)
[2023-07-20] MEDS: methIMAzole 5 MG TABLET PO SCH (08:32)
[2023-07-20] MEDS: oxyCODONE HCL IR 5 MG TAB (IMMEDIATE RELEASE) PO PRN ×3 (08:34→16:36)
[2023-07-20] MEDS: PIPERACILLIN/TAZOBACTAM 4.5 GM in DEXTROSE 5% MINI-B 100 ML IV SCH ×3 (08:34→23:58)
[2023-07-20] MEDS: LACTATED RINGER'S 1,000 ML IV SCH (09:10)
[2023-07-20] MEDS: ONDANSETRON INJ 2 MG/ML 2 ML VIAL IV PRN (16:50)
[2023-07-20] MEDS ORDERED: diphenhydrAMINE 50 MG/ML VIAL IV STA (18:38)
[2023-07-20] MEDS ORDERED: diphenhydrAMINE 50 MG/ML VIAL IV PRN (18:49)
[2023-07-21 05:14] LABS: Albumin Level 4.2 gm/dl (3.4-5.0); BUN Creatinine Ratio 16.7 (10-20); Bilirubin Direct 0.3 mg/dl (0-0.2); Creatinine Clr Calc Pharmacy 99.9 ml/min; Est GFR (African American) 99.9 ml/min; Est GFR (Non-African American) 86.2 ml/min; Potassium 3.5 mmol/L (3.5-5.1); Total Protein 7.1 gm/dl (6.0-8.3)
[2023-07-21 05:29] LABS: Basophils # (auto) 0.01 K/uL (0.00-0.20); Basophils % (auto) 0.2 %; Eosinophils # (auto) 0.03 K/uL (0.00-0.50); Eosinophils % (auto) 0.5 %; Hematocrit (blood only) 37.2 % (37.0-47.0); Hemoglobin 12.4 g/dl (12.0-16.0); Immature Granulocytes # (auto) 0.03 K/uL (0.01-0.20); Immature Granulocytes % (auto) 0.5 %; Lymphocytes # (auto) 1.52 K/uL (1.20-3.40); Lymphocytes % (auto) 23.6 %; Mean Corpuscular Hemoglobin 30.2 pg (25.0-34.0); Mean Corpuscular Hgb Conc 33.3 g/dL (32.0-36.0); Mean Corpuscular Volume 90.5 fL (80.0-100.0); Mean Platelet Volume 10.1 fL (9.4-12.4); Monocytes # (auto) 0.67 K/uL (0.11-0.59); Monocytes % (auto) 10.4 %; Neutrophils # (auto) 4.18 K/uL (1.40-6.50); Neutrophils % (auto) 64.8 %; Platelet Count 253 K/uL (130-400); RDW Coefficient of Variation 12.9 % (11.5-14.5); RDW Standard Deviation 42.4 fL (36.4-46.3); Red Blood Count 4.11 M/uL (4.20-5.40); White Blood Count 6.44 K/ul (4.8-10.8)
--- NOTE | 2023-07-21 07:09 | Electrocardiogram Report ---
Test Reason : Blood Pressure : / mmHG Vent. Rate : 081 BPM Atrial Rate : 081 BPM P-R Int : 150 ms QRS Dur : 078 ms QT Int : 360 ms P-R-T Axes : 037 -08 046 degrees QTc Int : 418 ms Normal sinus rhythm Minimal voltage criteria for LVH, may be normal variant Possible Anterior infarct (cited on or before 20-AUG-2019) Abnormal ECG When compared with ECG of 20-AUG-2019 09:38, No significant change was found Confirmed by Baltazar Goodman ([id number]) on 07/21/2023 7:08:47 AM Referred By: REFERRED SELF Confirmed By:Baltazar Goodman
[2023-07-21] MEDS: methIMAzole 5 MG TABLET PO SCH (09:06)
[2023-07-21] MEDS: DOCUSATE SODIUM 100 MG CAP PO SCH (09:06)
[2023-07-21] MEDS: PIPERACILLIN/TAZOBACTAM 4.5 GM in DEXTROSE 5% MINI-B 100 ML IV SCH (09:08)
[2023-07-21] MEDS ORDERED: ACETAMINOPHEN 500 MG TAB PO PRN (09:18)
--- NOTE | 2023-07-21 11:11 | Surgery Progress Note ---
Date of Service July 21, 2023 Assessment & Plan (1) Abdominal pain: Plan: Postoperative day #2. She is doing better. Labs improving today. Will discharge to home. Instructions given. We will follow-up with Dr. Lara in clinic next week. (2) Cholecystitis: Admission and Anticipated Discharge Date Admission Date: July 18, 2023 Subjective Patient seen. Doing better this morning. Pain significantly improved. Currently no nausea Physical Exam Physical Exam: Alert. In mild postsurgical discomfort Abdomen is soft with expected postoperative tenderness Results & Data Vital Signs (Past 12 Hours) Vital Signs Temp Pulse Resp BP Pulse Ox O2 Del Method 07/21/23 06:15 37.0 C 80 16 118/79 97 Room Air
--- NOTE | 2023-07-27 20:19 | Discharge Summary ---
Date of Service Date of admission: 07/18/23 Date of Discharge: 07/21/23 Admission HPI Per Admitting Provider This is a 53-year-old female who presented the emergency department secondary to abdominal pain. She does that the pain first began in January. Patient said that she would have some right upper quadrant abdominal pain unrelated to meals. At that time the patient did undergo a gallbladder ultrasound that showed there was some echogenic foci in the gallbladder which were felt to represent gallstones. There is no pericholecystic fluid or gallbladder wall thickening at that time. The patient said that she made some lifestyle changes including diet changes and noted some improvement of her symptoms. Patient notes over the past several weeks though she has been having recurrent episodes of right upper quadrant pain. She notes that the pain is unrelated to meals but would often wake her up from sleep. She says that she has had associated nausea and vomiting. She denies any fevers, shakes, or chills. She has never had any abdominal surgeries in the past. She does not note any mitigating factors to her abdominal pain Since arrival to the hospital patient has had labs and imaging which) reviewed. Chest x-ray did not show any evidence of pneumothorax. The patient did not also appear to have any evidence of infiltrate. An abdominal ultrasound showed the patient had thickened gallbladder wall with pericholecystic fluid. There is no biliary ductal dilatation. There are some calcifications noted in the anterior gallbladder which could potentially have represented gallstones. Labs include a CBC her white blood cell count was 11.6. Hemoglobin, hematocrit, and platelet count were all within normal range. Chemistry profile showed sodium, potassium, BUN, creatinine within normal range. Patient did have some elevation of LFTs including a total bilirubin of 1.1, AST 147, ALT 78, and alkaline phosphatase of 181. Her lipase was nonelevated. Urinalysis did show trace leukocyte Estrace and 5-10 white blood cells per high-power field. There is no bacteria or nitrites on this study. An EKG was performed that showed normal sinus rhythm. There did not appear to be any changes indicative of acute ischemia. At the time of my interview the patient was resting comfortably in bed and she was in no distress. Discharge Data Consultations 07/18/23 19:00 ED Decision to Admit Stat Procedures Performed Operation Date: 07/19/23 08:10 Actual Procedures p Laparoscopic Cholecystectomy - Cem Lara, DO Hospital Course (1) Cholecystitis: Date of admission: 07/18/2023 Date of discharge 07/21/2023 This patient presented to the emergency department at [facility] secondary to abdominal pain. Available imaging and labs were suggestive of cholecystitis. Patient underwent an MRCP which was negative for choledocholithiasis the patient was taken to the operating room where Dr. Lara performed a laparoscopic cholecystectomy on 07/19/2023. Postoperatively patient had a relatively uneventful hospital course. She only had some issues with pain control. Once adequate pain control was achieved she was able to discharge home on postop day #2 which was 07/21/2023. Patient was instructed on appropriate wound care, diet, and activity. She was instructed to follow-up Dr. Lara in the clinic in approximate 1 to 2 weeks. Coding Level of Care Code 91071 IN/OBS DISCH 30 MIN/LESS Diagnoses Cholecystitis K81.9
== END 2023-07-21 13:45 | disposition home or self-care (01) | DRG 419 ==
LOC: ED 14:57 → 3W 19:22